=== PATIENT | female | born 1990 | race Two or more races ===

== ENCOUNTER 2020-04-05 06:20 | Emergency (ER) | payer MEDICAID ==
[~2020-04-05] VITALS: Ht 172.7 cm; Wt 108.0 kg
[2020-04-05] MEDS ORDERED: SODIUM CHLORIDE 0.9% 1,000 ML IV ONE (08:05)
[2020-04-05 08:07] LABS: CHLORIDE 109 mEq/L (98-107)
[2020-04-05 08:08] LABS: BASOPHILS % 0.9 % (0.0-2.0); EOSINOPHILS % 1.6 % (0.0-5.0); HEMATOCRIT. 36.7 % (36.0-48.0); HEMOGLOBIN. 11.7 g/dL (12.0-16.0); LYMPHOCYTES % 30.2 % (20.0-50.0); MEAN CORPUSCULAR HEMOGLOBIN 21.1 pg (28.0-32.0); MEAN CORPUSCULAR VOLUME 66.5 fL (81.0-99.0); MEAN PLATELET VOLUME 10.2 fl (7.4-10.4); MONOCYTES % 7.3 % (2.0-8.0); PLATELET 387 x1000/uL (130-400); RED BLOOD CELL COUNT 5.52 mill/uL (4.2-5.4); RED CELL DISTRIBUTION WIDTH 18.7 % (11.6-14.6)
[2020-04-05] MEDS ORDERED: ONDANSETRON HCL 4MG/2ML INJ IV ONE (08:15)
[2020-04-05] MEDS ORDERED: ONDANSETRON HCL 4MG/2ML INJ IM ONE (08:15)
[2020-04-05] MEDS ORDERED: MORPHINE SULFATE 4 MG/ML CPJ (NOT FOR IM USE) IV ONE (08:15)
[2020-04-05 08:18] LABS: CLARITY URINE CLEAR (CLEAR); COLOR URINE YELLOW (YELLOW); KETONES URINE NEGATIVE (NEGATIVE); LEUKOCYTE ESTERASE URINE 2+ (NEGATIVE); NITRITE URINE NEGATIVE (NEGATIVE); OCCULT BLOOD URINE NEGATIVE (NEGATIVE); PH URINE 6.5 (4.5-8.0); PROTEIN URINE NEGATIVE (NEGATIVE); SPECIFIC GRAVITY URINE 1.015 (1.005-1.030); UROBILINOGEN URINE 0.2 E.U./dL (0.2-1.0)
[2020-04-05] MEDS ORDERED: ACETAMINOPHEN 500MG TABLET PO ONE (08:30)
[2020-04-05 08:35] LABS: INR 0.9; PROTHROMBIN TIME 10.1 sec (9.6-11.0)
[2020-04-05 08:37] LABS: PLATELET ESTIMATE NORMAL
[2020-04-05] MEDS ORDERED: CEFTRIAXONE 1 G PREMIX 50 ML IV SCH (09:30)
[2020-04-05 11:35] VITALS: BP 127/80
== END 2020-04-05 11:35 | disposition home or self-care (01) ==
LOC: ER 06:20
DX: O26.891 Other specified pregnancy related conditions, first trimester (principal); R10.30 Lower abdominal pain, unspecified; R03.0 Elevated blood-pressure reading, without diagnosis of hypertension
CPT/HCPCS: 36415; 76801; 76817; 80053; 81003; 81025; 83690; 84702; 85025; 85610; 86850; 86900; 86901; 96361; 96365; 96375; 99285; J0696; J2405; J7030

== ENCOUNTER 2020-04-09 13:18 | Emergency (ER) | payer MEDICAID ==
[~2020-04-09] VITALS: Ht 160 cm; Wt 104.0 kg
[2020-04-09 15:11] LABS: HEMATOCRIT 36.3 % (36.0-48.0); HEMOGLOBIN 11.6 g/dL (12.0-16.0)
[2020-04-09 16:05] VITALS: BP 146/67
== END 2020-04-09 16:06 | disposition home or self-care (01) ==
LOC: ER 13:18
DX: O00.00 Abdominal pregnancy without intrauterine pregnancy (principal); Z32.01 Encounter for pregnancy test, result positive
CPT/HCPCS: 36415; 84702; 85014; 85018; 99283

== ENCOUNTER 2023-07-22 15:07 | Emergency (ER) | payer MEDICAID ==
[~2023-07-22] VITALS: Ht 170.2 cm; Wt 122.0 kg
[2023-07-22 15:11] VITALS: O2SAT 100
[2023-07-22 16:34] LABS: BASOPHILS % 0.3 % (0.0-2.0); EOSINOPHILS % 0.6 % (0.0-5.0); HEMATOCRIT. 39.2 % (36.0-48.0); HEMOGLOBIN. 12.1 g/dL (12.0-16.0); LYMPHOCYTES % 22.7 % (20.0-50.0); MEAN CORPUSCULAR HEMOGLOBIN 21.3 pg (28.0-32.0); MEAN CORPUSCULAR HGB CONC 30.8 g/dL (31.0-37.0); MEAN CORPUSCULAR VOLUME 69.2 fL (81.0-99.0); MEAN PLATELET VOLUME 9.2 fl (7.4-10.4); MONOCYTES % 5.8 % (2.0-8.0); NEUTROPHILS % 70.6 % (40.0-76.0); PLATELET 356 x1000/uL (130-400); RED BLOOD CELL COUNT 5.67 mill/uL (4.2-5.4); RED CELL DISTRIBUTION WIDTH 17.4 % (11.6-14.6); WHITE BLOOD COUNT 17.4 x1000/uL (4.5-11.0)
[2023-07-22 16:37] LABS: DIFFERENTIAL COMMENT 1
[2023-07-22 16:38] LABS: ADD RBC MORPHOLOGY YES
[2023-07-22 16:41] LABS: CHLORIDE 106 mEq/L (98-107); INDEX HEMOLYSI 1 (1-3); INDEX ICTERIC 1 (1-4); INDEX LIPEMIC 1 (1-3); POTASSIUM 3.5 mEq/L (3.5-5.1); SODIUM 135 mEq/L (136-145)
[2023-07-22 16:55] LABS: ANISOCYTOSIS 1+; HYPOCHROMASIA 2+; MICROCYTOSIS 3+; PLATELET ESTIMATE NORMAL
[2023-07-22 16:56] LABS: OVALOCYTES 1+
[2023-07-22 17:03] LABS: ALANINE AMINOTRANSFERASE 21 IU/L (13-61); ALBUMIN 3.1 g/dL (3.4-5.0); ASPARTATE AMINOTRANSFERASE 14 IU/L (15-37); B-HCG QUANTITATIVE 58405 mIU/mL (<3); BILIRUBIN TOTAL 0.2 mg/dL (0.1-1.0); CALCIUM 9.1 mg/dL (8.5-10.1); CARBON DIOXIDE 19 mEq/L (21-32); CREATININE 0.4 mg/dL (0.6-1.3); GLUCOSE 119 mg/dL (70-105); PROTEIN TOTAL 8.2 g/dL (6.0-8.3); UREA NITROGEN BLOOD 8 mg/dL (7-21)
[2023-07-22] MEDS ORDERED: KETOROLAC 30MG/ML VIAL IM ONE (18:30)
[2023-07-22] MEDS ORDERED: NAPR-681 MT (18:34)
[2023-07-22 19:10] LABS: CLARITY URINE TURBID (CLEAR); COLOR URINE RED (YELLOW); GLUCOSE URINE NEGATIVE (NEGATIVE); KETONES URINE NEGATIVE (NEGATIVE); LEUKOCYTE ESTERASE URINE 3+ (NEGATIVE); NITRITE URINE POSITIVE (NEGATIVE); OCCULT BLOOD URINE 2+ (NEGATIVE); PH URINE 5.5 (4.5-8.0); PROTEIN URINE 2+ (NEGATIVE); SPECIFIC GRAVITY URINE 1.027 (1.005-1.030); UROBILINOGEN URINE 0.2 E.U./dL (0.2-1.0)
[2023-07-22] MEDS ORDERED: SULF1TAB48 MT (19:16)
[2023-07-22 19:25] LABS: BACTERIA URINE 2+; RBC URINE TNTC /hpf (0-2); SQUAMOUS EPITHELIAL CELL URINE 1+ /lpf (RARE/1+)
[2023-07-22 19:46] VITALS: BP 109/86; PULSE 83; TEMP 98.4
== END 2023-07-22 19:47 | disposition home or self-care (01) ==
LOC: ER 15:07
DX: O03.9 Complete or unspecified spontaneous abortion without complication (principal); N39.0 Urinary tract infection, site not specified; E11.9 Type 2 diabetes mellitus without complications; E78.00 Pure hypercholesterolemia, unspecified; I10 Essential (primary) hypertension
CPT/HCPCS: 80053; 81003; 84702; 85025; 86850; 86900; 86901; 36415; 76801; 76817; 96372; 99285; J1885; Z7610